=== PATIENT | female | born 1940 | race Asian ===

== ENCOUNTER 2022-01-11 17:54 | Emergency (ER) | payer OTHER ==
[~2022-01-11] VITALS: Ht 154.9 cm; Wt 63.5 kg
[~2022-01-11 17:54] MED LIST: ACET-2619 PO; ASPI-1822 GT; ATOR40TA GT; BISA-213 RC; DIPH25TA53 PO; FER300L GT; HEPA500056 SUBQ; LACT10SO11 PO; Potassium Chloride 20% GT
--- NOTE | 2022-01-11 18:00 | NUR ---
PT TO ER BED 2 VIA [facility]
[2022-01-11 18:03] VITALS: BP 119/83
--- NOTE | 2022-01-11 18:11 | NUR ---
JOSIAS FROM [facility] WITH A CC OF NOSE BLEED SINCE 1029 TODAY. HX OF CVA WITH L HEMIPLEGIA, DM, AND DEMENTIA. AWAKE, ALERT, ONLY SPEAKS MADARIN
[2022-01-11 18:57] LABS: BASOPHILS # (AUTO) 0.1 K/uL (0.00-0.22); BASOPHILS % (AUTO) 0.9 % (0.0-2.0); EOSINOPHILS # (AUTO) 0.1 K/uL (0-0.4); EOSINOPHILS % (AUTO) 0.7 % (0.0-4.0); LYMPHOCYTES # (AUTO) 2.9 K/uL (2.5-16.5); LYMPHOCYTES % (AUTO) 30.3 % (20.5-51.1); MEAN CORPUSCULAR HEMOGLOBIN 30 pg (27-31); MEAN CORPUSCULAR HGB CONC 34 g/dL (33-37); MEAN CORPUSCULAR VOLUME 89.3 fL (80-94); MONOCYTES # (AUTO) 0.6 K/uL (0.8-1.0); MONOCYTES % (AUTO) 6.2 % (1.7-9.3); NEUTROPHILS % (AUTO) 61.9 % (42.2-75.2); PLATELET COUNT (AUTO) 177 K/uL (140-450); RED BLOOD CELL COUNT(AUTO) 4.36 MIL/uL (4.20-5.40); RED CELL DISTRIBUTION WIDTH 14.4 % (11.6-13.7); WHITE BLOOD COUNT (AUTO) 9.7 K/uL (4.8-10.8)
[2022-01-11 19:38] LABS: ALBUMIN 3.1 g/dL (3.4-5.0); ANION GAP 13.1 (8-16); ASPARTATE AMINOTRANSFERASE 19 U/L (15-37); CARBON DIOXIDE 26.2 mmol/L (21-32); CHLORIDE 106 mmol/L (98-107); CREATININE 0.6 mg/dL (0.6-1.3); GLUCOSE 164 mg/dL (74-106); POTASSIUM 4.3 mmol/L (3.5-5.1); SODIUM SERUM 141 mmol/L (136-145); TOTAL BILIRUBIN 0.6 mg/dL (0.0-1.0); UREA NITROGEN, BLOOD 26 mg/dL (7-18)
[2022-01-11 19:58] LABS: PROTHROMBIN TIME 10.3 secs (10.8-13.4)
--- NOTE | 2022-01-11 20:00 | NUR ---
ASSUMED CARE OF PT AT THIS TIME. PT IN POSITION OF COMFORT. NO S/S OF DISTRESS NOTED. NO BLEEDING AT THIS TIME. VSS.
--- NOTE | 2022-01-11 20:35 | NUR ---
INFLUENZA SWAB COLLECTED AND SENT TO LAB
--- NOTE | 2022-01-11 20:50 | NUR ---
CALLED REPORT TO [facility]. PT DISCHARGED AND STABLE NO BLEEDING NOTED.
--- NOTE | 2022-01-11 21:00 | NUR ---
SPOKE WITH CLIVE, DAUGHTER WILL CALL BACK WITH WHOM AND WHEN FAMILY WILL PICK HER UP TO TAKE HER TO [facility].
--- NOTE | 2022-01-11 22:00 | NUR ---
IRIS GRAND DAUGHTER CONTACTED AGAIN. STATES SHE SPOKE WITH [facility] AND WE THE HOSP[facility] ARE TO ARRANGE TRANSPORTATION. EXPLAINED TO CLIVE, THAT HER GRANDMOTHER WILL BE HERE ALL NIGHT AND WE WERE TRYING TO SEE IF FAMILY IS AVAILABLE TO PICK PT UP AT THIS TIME. ADVISED THE HANS THAT WE WERE VERY BUSY AND PT WOULD BE IN A W/C AND PLACED BACK IN BED WHEN ONE CAME AVAILABLE PT IS DISCHARGED. [facility] NOT AVAILABLE UNTIL AT LEAST 8 AM. [place]RIS[place] AWARE. WILL CALL BACK WITH PLANS.
--- NOTE | 2022-01-11 22:30 | NUR ---
SPOKE WITH NURSE AT [facility] ATTEMPTING TO COORDINATE TRANSPORTATION SO PT CAN BE BACK IN FAMILIAR ENVIRONMENT PT IS ADVANCED DEMENTIA. NOT ABLE TO PROVIDE TRANSPORTATION AND UNWILLING TO ALLOW PT TO BE TAKEN BY [facility]. WILL HOLD PT HERE IN ED AWAITING TRANSPORTATION.
--- NOTE | 2022-01-12 00:30 | NUR ---
PT RESTING, NO S/S OF DISTRESS NOTED. AWAITING TRANSPORTATION BACK TO [facility].
--- NOTE | 2022-01-12 03:09 | NUR ---
PT PROVIDED WITH EXTRA BLANKETS PER REQUEST
--- NOTE | 2022-01-12 04:28 | NUR ---
PT CLEANED AT THIS TIME. SOFT GREENISH STOOL NOTED. PROVIDED LINEN AND BLANKETS.
--- NOTE | 2022-01-12 06:30 | NUR ---
PT IN POSITION OF COMFORT. AWAITING TRANSPORTATION BACK TO [facility].
[2022-01-12] MEDS ORDERED: HALOPERIDOL IM 5 MG/ML VIAL IM ONE (07:05)
--- NOTE | 2022-01-12 07:11 | NUR ---
PT UP AND AMBULATES TO RESTROOM AT THIS TIME.
--- NOTE | 2022-01-12 07:15 | NUR ---
REPORT TO JOSE DOUGLAS
--- NOTE | 2022-01-12 07:30 | NUR ---
RECEIVED PT IN [facility] ALERT ORIENTED. PENDING TX BACK TO SNF . NAD. SAFETY MAINTAINED
--- NOTE | 2022-01-12 08:00 | NUR ---
PT INCONTINENT OF URINE AND STOOL. CHANGED CLEANED REPOSITIONED. PENDING TX
[2022-01-12] MEDS ORDERED: HALOPERIDOL IM 5 MG/ML VIAL ONE (09:15)
--- NOTE | 2022-01-12 09:46 | NUR ---
CALLED PT SON OROSCO,CLIVE GAVE PERMISSION FOR HIS MOM TO GO BACK VIA [facility].
--- NOTE | 2022-01-12 12:15 | NUR ---
SPOKE W/ MARIANGEL FROM [facility] . [place] ARRANGED BY [facility] [place] @1400 .
--- NOTE | 2022-01-12 12:27 | NUR ---
CALLED [facility] [phone] SPOKE WITH OZZY STATED ITS ARRANGED WITH [facility] [phone] CUTTER GRINDER OPERATOR TIME 2 PM. NOTIFIED JEFF. AND LIZZY AT [facility].
--- NOTE | 2022-01-12 13:39 | NUR ---
spoke to art data conversion analyst at [facility] for continuation of care and return back to facility. transport here for chicken picker . stable on dc
[2022-01-12 13:40] VITALS: BP 104/64
== END 2022-01-12 13:39 ==
LOC: MED 17:54
DX: R04.0 Epistaxis (principal); E11.9 Type 2 diabetes mellitus without complications; I10 Essential (primary) hypertension; Z86.73 Personal history of transient ischemic attack (TIA), and cerebral infarction without residual deficits; Z79.4 Long term (current) use of insulin; Z79.899 Other long term (current) drug therapy
CPT/HCPCS: 36415; 80053; 83605; 85025; 85610; 85730; 87804; 96372; 99285; J1630